=== PATIENT | male | born 1940 | race Caucasian/White ===

== ENCOUNTER 2016-10-05 18:47 | Emergency (ER) | payer OTHER ==
[~2016-10-05] VITALS: Ht 182.9 cm; Wt 98.0 kg
[~2016-10-05 18:47] MED LIST: DICY1TAB26 PO; LEVA500T PO; LORTA10 PO; LOVA20TA PO; METR-1 PO; PROT40TA PO; ZOFR4TAB3 SL; [UNRECOGNIZED DRUG - REMARK]
[2016-10-05 18:49] VITALS: BP 127/78; PULSE 80; RESP 20; TEMP 98.6; O2SAT 98
--- NOTE | 2016-10-05 20:30 | PD ---
Physical Exam Date Seen by Provider: Oct 05, 2016 Time Seen by Provider: 20:26 Narrative 76 y/o male presents with Left Lower Abdominal pain. Has had it off and on for a couple of months. No urinary symptoms. Has had Diverticulitis in the past. Pain at worse is 10/10. Now pain is 3-4/10. Patient sent by PCP for CT Scan. No Nausea or Vomiting. Vital signs reviewed. Patient stable. Awaiting Bed placement. Data Data Last Documented VS Vital Signs Date Time Temp Pulse Resp B/P Pulse Ox O2 Delivery O2 Flow Rate FiO2 10/05/16 18:49 98.6 80 20 127/78 98 MDM Medical Record Reviewed: Yes Supervised Visit with ÁNGEL: Yes Condition: Stable Antonio Alexander Oct 05, 2016 20:30
== END 2016-10-05 22:17 | disposition left against medical advice (07) ==
LOC: NED 18:47
DX: R10.32 Left lower quadrant pain (principal)
CPT/HCPCS: 99281